=== PATIENT | female | born 1990 | race Caucasian/White ===

== ENCOUNTER 2016-08-08 13:15 | Emergency (ER) | payer OTHER ==
[~2016-08-08] VITALS: Ht 167.6 cm; Wt 87.0 kg
[~2016-08-08 13:15] MED LIST: PREN1TAB62 PO
[2016-08-08 14:03] VITALS: Ht 167.6 cm; Wt 87.0 kg
[2016-08-08] MEDS ORDERED: NAPR-260 PO (14:33)
[2016-08-08] MEDS ORDERED: ACYC800T57 PO (14:33)
--- NOTE | 2016-08-08 14:52 | ERD ---
ER Documentation Chief Complaint Date/Time DATE: 08/08/16 TIME: 14:48 Chief Complaint FACIAL RASH WITH FLUID FILLED VESICLES X 5 DAYS HPI 26-year-old female comes in with a painful rash on the right side of her face for the past 5 days. Patient describes as burning pain that starts on her forehead and went over eyelid, and behind her ear. She denies any nasal pain. No blurred vision. Denies eye discharge. She states that she has had chickenpox before. She is currently breast-feeding a 2-month-old, she has a another child who is about a year and a half old who is vaccinated. ROS All systems reviewed and are negative except as per history of present illness. Medications Home Meds Active Scripts Naproxen* (Naprosyn*) 500 Mg Tablet, 500 MG PO BID Y for PAIN AND/OR INFLAMMATION, #30 TAB Prov:ASAEL CARDONA PA-C 08/08/16 Acyclovir* (Zovirax*) 800 Mg Tablet, 800 MG PO 5 TIMES DAILY for 7 Days, TAB Prov:ASAEL CARDONA PA-C 08/08/16 Reported Medications Vit-Iron Fumarate-FA ( Vitamin Tablet) 1 Each Tablet, 1 TAB PO DAILY, TAB 02/03/16 Allergies Allergies: Coded Allergies: No Known Allergy (Unverified , 02/03/16) Physical Exam Vitals Vital Signs Date Time Temp Pulse Resp B/P Pulse Ox O2 Delivery O2 Flow Rate FiO2 08/08/16 14:03 99.7 97 20 111/70 100 Physical Exam General: Well-developed, well-nourished. The patient appears in no acute distress. HEENT: Head is normocephalic, atraumatic. No scleral icterus. Pupils are equal , round, and reactive. Conjunctive are normal, no injection oral mucous membranes are moist. No pharyngeal erythema. No nasal pain, no nasal lesions Neck: Supple. Nontender. Lungs: Clear to auscultation. Normal air movement. Heart: Regular rate and rhythm. S1 and S2 are normal. No murmurs, gallops, or rubs. Abdomen: Soft, nontender, nondistended. Bowel sounds are normoactive. Extremities: No clubbing or cyanosis. Normal pulses. Moving extremities x 4. No weakness. Neurologic: Alert and oriented 3. No focal deficits. Skin: Vesicular left rash that is unilateral on the right side starting on the right forehead, right eyebrow, right upper eyelid, and slight erythema behind the right ear. Procedures/MDM 26-year-old female presents with shingles, there is no evidence of herpetic ophthalmic [place], ear and nose are clear. Her eyes were reviewed and there is no injection to them and she does not have any eye pain, or visual changes. This patient will be given acyclovir and Naprosyn for pain. She was asked to bottle feed the child formula while breast-feeding and was given contact precautions. The case was reviewed and discussed with Dr. Hunter who agrees with the plan of care including labs, treatment, and advanced imaging as appropriate. Departure Diagnosis: Primary Impression: Shingles Condition: Good Patient Instructions: Shingles (Herpes Zoster) Additional Instructions: Call your primary care doctor TOMORROW for an appointment during the next 1-2 days.See the doctor sooner or return here if your condition worsens before your appointment time. ASAEL CARDONA PA-C Aug 08, 2016 14:52
== END 2016-08-08 15:45 | disposition home or self-care (01) ==
LOC: E/R 13:15
DX: B02.9 Zoster without complications (principal)
CPT/HCPCS: 99283

== ENCOUNTER 2016-09-08 21:28 | Emergency (ER) | payer OTHER ==
[~2016-09-08] VITALS: Ht 162.6 cm; Wt 85.5 kg
[~2016-09-08 21:28] MED LIST changes: +ACYC800T57 PO; +NAPR-260 PO
[2016-09-08 22:07] VITALS: Ht 162.6 cm; Wt 85.5 kg
[2016-09-09] MEDS ORDERED: METHYLPREDNISOLONE 125 MG INJ IV STA (01:04)
[2016-09-09] MEDS ORDERED: DIPHENHYDRAMINE 50 MG INJ IV STA (01:04)
[2016-09-09] MEDS ORDERED: SOD CHLORIDE 0.9% 1,000 ML IV STA (01:04)
[2016-09-09] MEDS ORDERED: FAMOTIDINE 20 MG INJ IV ONE (01:30)
--- NOTE | 2016-09-09 01:53 | ERD ---
ER Documentation Chief Complaint Date/Time DATE: 09/09/16 TIME: 01:51 Chief Complaint Rash at 1900 HPI This is a 26-year-old female who presents to the emergency room for evaluation of a rash. The patient states her rash started around 7 PM. She denies any allergies, and states that that she noticed the rash started on her face and started spreading down to her arms, torso and legs. The patient states her rash is itchy. She denies any difficulty breathing or speaking. She denies any swelling in her lips or tongue. The patient does state she has a history of shingles which she was treated for 2 weeks past and is not on any medication at this time ROS All systems reviewed and are negative except as per history of present illness. Medications Home Meds Active Scripts Naproxen* (Naprosyn*) 500 Mg Tablet, 500 MG PO BID Y for PAIN AND/OR INFLAMMATION, #30 TAB Prov:ASAEL CARDONA PA-C 08/08/16 Acyclovir* (Zovirax*) 800 Mg Tablet, 800 MG PO 5 TIMES DAILY for 7 Days, TAB Prov:ASAEL CARDONA PA-C 08/08/16 Reported Medications Vit-Iron Fumarate-FA ( Vitamin Tablet) 1 Each Tablet, 1 TAB PO DAILY, TAB 02/03/16 Allergies Allergies: Coded Allergies: No Known Allergy (Unverified , 02/03/16) PMhx/Soc Medical and Surgical Hx: pt denies Medical Hx, pt denies Surgical Hx Hx Alcohol Use: No Hx Substance Use: No Hx Tobacco Use: No Smoking Status: Never smoker Physical Exam Vitals Vital Signs Date Time Temp Pulse Resp B/P Pulse Ox O2 Delivery O2 Flow Rate FiO2 09/09/16 01:40 97.5 60 18 107/60 100 Room Air 09/08/16 22:07 97.5 70 18 105/63 100 Physical Exam INITIAL VITAL SIGNS: Reviewed by me GENERAL: The patient is well developed and appropriate for usual state of health in no apparent distress HEENT: No pharyngeal edema pupils equal, round, and reactive to light. EOMI. There is no scleral icterus. NECK: C-spine is soft and supple, there is no meningismus. There is no cervical lymphadenopathy. LUNGS: Clear to auscultation bilaterally. There are no rales, wheezes or rhonchi. HEART: Regular rate and rhythm, no murmurs, clicks, rubs or gallops. ABDOMEN: Soft, non-tender, non-distended. There are bowel sounds in all four quadrants. No rebound or guarding. EXTREMITIES: There is no peripheral cyanosis or edema. No focal swelling or erythema. NEUROLOGICAL: The patient moves all four extremities with 5/5 strength. Cranial nerves II - XII are intact. Normal gait. Alert and oriented SKIN: Macular papular rash noted over the face, bilateral upper extremities and lower extremity's, negative skin sloughing there is no apparent rash or petechiae. HEME/LYMPHATIC: There is no evidence of excessive bruising or lymphedema. PSYCHIATRIC: The patient does not appear anxious or depressed. Results 24 hrs Current Medications Medications (Trade) Dose Ordered Sig/Donnie Route PRN Reason Start Time Stop Time Status Last Admin Dose Admin Diphenhydramine HCl 25 mg 25 mg ONCE STAT IV 09/09/16 01:04 09/09/16 01:06 DC 09/09/16 01:33 Sodium Chloride (NS) 1,000 ml @ 1,000 mls/hr Q1H STAT IV 09/09/16 01:04 09/09/16 02:03 09/09/16 01:33 Methylprednisolone Sodium Succinate (Solu-Medrol) 125 mg ONCE STAT IV 09/09/16 01:04 09/09/16 01:06 DC 09/09/16 01:33 Famotidine (Pepcid Iv) 20 mg ONCE ONCE IV 09/09/16 01:30 09/09/16 01:31 DC 09/09/16 01:33 Procedures/MDM This 26-year-old female presents to the emergency room for evaluation of a rash. I evaluated this patient she did have a maculopapular rash which was diffuse. This patient was given Benadryl, Solu-Medrol, Pepcid, and IV fluids. She has no signs of anaphylaxis. The patient has responded well upon my reevaluation to the medications. I advised her she needs to be allergy tested. The patient has no difficulty breathing, she is tolerating secretions. The patient will be discharged home with a prescription for Benadryl, prednisone, and epinephrine pen for emergent use. Departure Diagnosis: Primary Impression: Allergic reaction Condition: LEONID De Luna DO Sep 09, 2016 01:53
[2016-09-09] MEDS ORDERED: BEN25 PO (01:54)
[2016-09-09] MEDS ORDERED: EPIN0.3P4 INJ (01:54)
[2016-09-09] MEDS ORDERED: PRED20TA PO (01:54)
[2016-09-09 02:23] VITALS: BP 124/79; PULSE 99; RESP 20; TEMP 98
== END 2016-09-09 02:25 | disposition home or self-care (01) ==
LOC: E/R 21:28
DX: R21 Rash and other nonspecific skin eruption (principal)
CPT/HCPCS: 96374; 96375; J1200; J2930; J7030; Z7502; Z7610

== ENCOUNTER 2017-01-23 05:03 | Emergency (ER) | payer OTHER ==
[~2017-01-23] VITALS: Ht 160 cm; Wt 85.5 kg
[~2017-01-23 05:03] MED LIST changes: +BEN25 PO; +EPIN0.3P4 INJ; +PRED20TA PO
[2017-01-23 05:10] VITALS: Ht 160 cm; Wt 85.5 kg
[2017-01-23] MEDS ORDERED: SOD CHLORIDE 0.9% 1,000 ML IV STA (06:13)
[2017-01-23] MEDS ORDERED: ONDANSETRON 4 MG INJ IV STA (06:13)
[2017-01-23] MEDS ORDERED: morphine 2 MG INJ IV STA (06:13)
--- NOTE | 2017-01-23 06:23 | ERD ---
ER Documentation Chief Complaint Date/Time DATE: 01/23/17 TIME: 06:22 Chief Complaint lower abd pain w/ diarrheax 2 days, HPI Patient is a 26-year-old female who states she has had nausea, vomiting, and diarrhea since yesterday at about 3 PM. She denies fever. She describes a moderate 8 out of 10 generalized abdominal pain. She states she has had some blood in her stool. Also admits to dysuria, hematuria, increased urinary frequency. Denies any change with food. ROS All systems reviewed and are negative except as per history of present illness. Medications Home Meds Active Scripts Epinephrine (Epipen 2-Flaquito) 0.3 Mg/0.3 Ml Pen.injctr, 1 EA INJ ONCE Y for ALLERGIC REACTION, #1 EA Prov:LEONID OTERO DO 09/09/16 Diphenhydramine Hcl* (Benadryl*) 25 Mg Cap, 25 MG PO Q6 Y for ITCHING/RASH, #30 TAB Prov:LEONID OTERO DO 09/09/16 Prednisone* (Prednisone*) 20 Mg Tab, 40 MG PO DAILY for 4 Days, TAB Prov:LEONID OTERO DO 09/09/16 Naproxen* (Naprosyn*) 500 Mg Tablet, 500 MG PO BID Y for PAIN AND/OR INFLAMMATION, #30 TAB Prov:ASAEL CARDONA PA-C 08/08/16 Acyclovir* (Zovirax*) 800 Mg Tablet, 800 MG PO 5 TIMES DAILY for 7 Days, TAB Prov:ASAEL CARDONA PA-C 08/08/16 Reported Medications Vit-Iron Fumarate-FA ( Vitamin Tablet) 1 Each Tablet, 1 TAB PO DAILY, TAB 02/03/16 Allergies Allergies: Coded Allergies: No Known Allergy (Unverified , 02/03/16) PMhx/Soc Hx Alcohol Use: No Hx Substance Use: No Hx Tobacco Use: No FmHx Family History: No diabetes Physical Exam Vitals Vital Signs Date Time Temp Pulse Resp B/P Pulse Ox O2 Delivery O2 Flow Rate FiO2 01/23/17 05:10 97.6 74 20 112/70 98 Physical Exam INITIAL VITAL SIGNS: Reviewed by me GENERAL: Awake, alert and oriented x 4, well appearing, nontoxic, speaking in full sentences. No acute distress HEAD: Atraumatic EYES: EOMI. PERRL. THROAT: No tonilar erythema or edema. No exudates. Uvula midline. No kissing tonsils. NECK: Supple. No masses. Full range of motion. No meningismus. No midline tenderness. RESPIRATORY: Clear to auscultation bilaterally. Symmetric chest wall rise. No wheezing or rales. No accessory muscle use. CV: Regular rate and rhythm. No murmurs, rubs, or gallops. ABDOMEN: Soft, non-distended. Nontender. Negative [place]. Negative [place] point tenderness. No CVA tenderness bilaterally. No guarding. No rebound. EXTREMITIES: No clubbing or cyanosis. No edema. Moving all extremities normally. BACK: No midline tenderness to palpation. No step-offs. Result Diagram: 01/23/1737 01/23/1737 Results 24 hrs Laboratory Tests Test 01/23/17 06:37 White Blood Count 12.310^3/ul Red Blood Count 4.7610^6/ul Hemoglobin 13.8g/dl Hematocrit 41.6% Mean Corpuscular Volume 87.4fl Mean Corpuscular Hemoglobin 29.0pg Mean Corpuscular Hemoglobin Concent 33.2g/dl Red Cell Distribution Width 11.8% Platelet Count 52606^3/UL Mean Platelet Volume 10.1fl Neutrophils % 76.3% Lymphocytes % 16.4% Monocytes % 6.4% Eosinophils % 0.2% Basophils % 0.2% Nucleated Red Blood Cells % 0.0/100WBC Neutrophils # 9.410^3/ul Lymphocytes # 2.010^3/ul Monocytes # 0.810^3/ul Eosinophils # 0.010^3/ul Basophils # 0.010^3/ul Nucleated Red Blood Cells # 0.010^3/ul Urine Color YELLOW Urine Clarity CLEAR Urine pH 6.0 Urine Specific [place] 1.033 Urine Ketones NEGATIVEmg/dL Urine Nitrite NEGATIVEmg/dL Urine Bilirubin NEGATIVEmg/dL Urine Urobilinogen NEGATIVEmg/dL Urine Leukocyte Esterase NEGATIVELeu/ul Urine Hemoglobin NEGATIVEmg/dL Urine Glucose NEGATIVEmg/dL Urine Total Protein NEGATIVEmg/dl Sodium Level 148mmol/L Potassium Level 4.5mmol/L Chloride Level 108mmol/L Carbon Dioxide Level 26mmol/L Anion Gap 19 Blood Urea Nitrogen 13mg/dl Creatinine 0.71mg/dl Glucose Level 109mg/dl Calcium Level 9.0mg/dl Total Bilirubin 0.2mg/dl Direct Bilirubin 0.00mg/dl Indirect Bilirubin 0.2mg/dl Aspartate Amino Transf (AST/SGOT) 17IU/L Alanine Aminotransferase (ALT/SGPT) 37IU/L Alkaline Phosphatase 98IU/L Total Protein 7.7g/dl Albumin 4.6g/dl Globulin 3.10g/dl Albumin/Globulin Ratio 1.48 Lipase 174U/L Current Medications Medications (Trade) Dose Ordered Sig/Donnie Route PRN Reason Start Time Stop Time Status Last Admin Dose Admin Sodium Chloride (NS) 1,000 ml @ 1,000 mls/hr Q1H STAT IV 01/23/17 06:13 01/23/17 07:12 DC 01/23/17 06:45 Morphine Sulfate (morphine) 2 mg ONCE STAT IV 01/23/17 06:13 01/23/17 06:14 DC 01/23/17 06:45 Ondansetron HCl (Zofran Inj) 4 mg ONCE STAT IV 01/23/17 06:13 01/23/17 06:15 DC 01/23/17 06:44 Procedures/MDM 26-year-old female presents with abdominal pain with nausea vomiting and diarrhea. Patients is alert, oriented, well appearing, and in no distress with normal vital signs. There is no fever, tachycardia, or tachypnea. The differential diagnosis includes but is not limited to appendicitis, cholelithiasis, cholecystitis, pancreatitis, hepatitis, gastritis, peptic ulcer disease, bowel obstruction, diverticulitis, renal disease including stones, torsion, AAA, pyelonephritis, and others. She was given IV fluids and pain medications and workup including labs and CT scan were ordered. She has a elevated white blood cell count of 12.3 otherwise her labs are unremarkable her CT scan is negative. Patient will be discharged with Imodium to help with her diarrhea. Patient counseled regarding my diagnostic impression and care plan. Prior to discharge all questions answered. Pt agrees with treatment plan and understands strict return precautions. Pt is instructed to follow up with primary care provider within 24-48 hours. Precautionary instructions provided including instructions to return to the ER if not improving or for any worsening or changing symptoms or concerns. Departure Diagnosis: Primary Impression: Gastroenteritis Condition: Stable REESE MATTA PA-C Jan 23, 2017 06:23
[2017-01-23 07:12] LABS: BASOPHILS % 0.2 % (0.0-2.0); EOSINOPHILS % 0.2 % (0.0-7.0); HEMATOCRIT 41.6 % (37.0-47.0); HEMOGLOBIN 13.8 g/dl (12.0-16.0); LYMPHOCYTES % 16.4 % (15.0-51.0); MEAN CORPUSCULAR HGB CONC 33.2 g/dl (32.0-37.0); MEAN CORPUSCULAR VOLUME 87.4 fl (82.0-101.0); MEAN PLATELET VOLUME 10.1 fl (7.4-10.4); MONOCYTE # 0.8 10^3/ul (0.3-0.9); MONOCYTES % 6.4 % (0.0-11.0); NEUTROPHIL # 9.4 10^3/ul (1.6-7.5); NEUTROPHILS % 76.3 % (39.0-77.0); PLATELET COUNT 318 10^3/UL (140-415); RED BLOOD COUNT 4.76 10^6/ul (4.20-5.40); RED CELL DISTRIBUTION WIDTH 11.8 % (11.5-14.5); WHITE BLOOD COUNT 12.3 10^3/ul (4.8-10.8)
[2017-01-23 07:22] LABS: ADD UMIC NO; UR ASCORBIC ACID NEGATIVE (NEGATIVE); UR BILIRUBIN (Dip) NEGATIVE (NEGATIVE); UR BLOOD (Dip) NEGATIVE (NEGATIVE); UR CLARITY CLEAR (CLEAR); UR COLOR YELLOW (YELLOW); UR GLUCOSE (Dip) NEGATIVE (NEGATIVE); UR KETONES (Dip) NEGATIVE (NEGATIVE); UR LEUKOCYTE ESTERASE (Dip) NEGATIVE Leu/ul (NEGATIVE); UR NITRITE (Dip) NEGATIVE (NEGATIVE); UR SPECIFIC GRAVITY (Dip) 1.033 (1.003-1.030); UR TOTAL PROTEIN (Dip) NEGATIVE (NEGATIVE); UR UROBILINOGEN (Dip) NEGATIVE (NEGATIVE)
[2017-01-23 07:32] LABS: ALBUMIN 4.6 g/dl (3.3-4.9); ALBUMIN/GLOBULIN RATIO 1.48; BILIRUBIN,INDIRECT 0.2 mg/dl (0-1.1); BILIRUBIN,TOTAL 0.2 mg/dl (0.2-1.3); CREATININE 0.71 mg/dl (0.44-1.00); POTASSIUM 4.5 mmol/L (3.5-5.1); TOTAL PROTEIN 7.7 g/dl (6.1-8.1)
--- NOTE | 2017-01-23 07:41 | RADRPT ---
PROCEDURE: CT abdomen and pelvis without contrast. CLINICAL INDICATION: Abdominal pain. TECHNIQUE: CT scan of the abdomen and pelvis without contrast was performed on a multi-slice CT [facility] . Sagittal and coronal reformatted images were obtained from the axial source images. One or more of the following dose reduction techniques were used: - Automated exposure control. - Adjustment of the mA and/or kV according to patient size. - Use of iterative reconstruction technique. DLP 877.5 mGycm. CTDIvol 14.6 mGy COMPARISON: None FINDINGS: The lung bases are clear. There is limited evaluation of the solid viscera from the lack of IV con trast. The kidneys are symmetric bilaterally with no evidence of renal or ureteral calculi. There is no hy dronephrosis or perinephric stranding. There is normal density of the liver with no gross focal lesion or biliary ductal dilatation. The gallbladder is removed. The spleen is unremarkable without mass. The adrenal glands are within normal limits without mass. The pancreas is unremarkable without focal lesion or surrounding inflammatory changes. There is no bowel obstruction or focal bowel inflammation. The appendix is unremarkable. There is no free air or free fluid. There are no enlarged lymph nodes. The aorta is unremarkable and there is no acute osseous abnormality. Intrauterine device is present but appears to be within the uterine cavity and is grossly uncomplica lani. The adnexal structures are grossly within normal limits. Fine detail is limited. IMPRESSION: No evidence of renal or ureteral calculi or hydronephrosis. No evidence of bowel obstruction or inflammation. There is no appendicitis. Intrauterine device is visualized. RPTAT: AA .Bar Oviedo MD, MD Date Time Electronically viewed and signed by .Bar Oviedo MD, MD on 01/23/2017 07:40 .Shawn/
[2017-01-23] MEDS ORDERED: LOPE2CAP PO (07:45)
== END 2017-01-23 08:08 | disposition home or self-care (01) ==
LOC: FTE 05:03
DX: K52.9 Noninfective gastroenteritis and colitis, unspecified (principal)
CPT/HCPCS: 74176; 80053; 81003; 83690; 85025; J2270; J2405; J7030; 36415; 96374; 96375

== ENCOUNTER 2018-03-01 15:59 | Emergency (ER) | END 2018-03-01 18:06 | disposition home or self-care (01) ==